=== PATIENT | female | born 1990 | race Caucasian/White ===

== ENCOUNTER 2020-09-20 04:49 | Inpatient (IN) | payer BC ==
[2020-09-20] MEDS ORDERED: Tranexamic Acid 1,000 MG in Sodium Chloride 0.9% 100 ML IV PRN (04:57)
[2020-09-20] MEDS ORDERED: Lidocaine 1% 50 ML MDV INJECT PRN (04:57)
[2020-09-20] MEDS ORDERED: Misoprostol 200 MCG Tab PO PRN (04:57)
[2020-09-20] MEDS ORDERED: Butorphanol 1 MG/ML SDV IVPUSH PRN (04:57)
[2020-09-20] MEDS ORDERED: Terbutaline 1 MG/ML SDV SUBCUT PRN (04:57)
[2020-09-20] MEDS ORDERED: Carboprost Tromethamine 250 MCG/1 ML Amp IM PRN (04:57)
[2020-09-20] MEDS ORDERED: Sodium Chloride 0.9% 10 ML SDV IV PRN ×2 (04:57→19:42)
[2020-09-20] MEDS ORDERED: Water For Irrigation,Sterile 1,000 ML Container IRR PRN (04:57)
[2020-09-20] MEDS ORDERED: Sodium Chloride 0.9% 10 ML Syringe FLUSH PRN ×2 (04:57→19:42)
[2020-09-20] MEDS ORDERED: Sodium Chloride 0.9% 2.5 ML Syringe FLUSH PRN ×2 (04:57→19:42)
[2020-09-20] MEDS ORDERED: Methylergonovine 0.2 MG/1 ML Amp IM PRN (04:57)
[2020-09-20] MEDS ORDERED: Ondansetron 4 MG/2 ML SDV IVPUSH PRN ×2 (04:57→20:53)
[2020-09-20] MEDS ORDERED: Oxytocin/0.9 % Sodium Chloride 30 UNIT/500 ML BAG IV SCH ×3 (05:00→19:45)
[2020-09-20] MEDS: Lactated Ringers 1,000 ML IV SCH ×2 (06:31→11:00)
[2020-09-20] MEDS ORDERED: Ropivacaine 0.2% PF 2 MG/ML 20 ML SDV ONE (10:37)
[2020-09-20] MEDS ORDERED: fentaNYL 100 MCG/2 ML SDV ONE ×2 (10:37→19:48)
[2020-09-20] MEDS ORDERED: Ropivacaine HCl/PF 100 ML ONE (10:37)
--- NOTE | 2020-09-20 11:41 | PCM.PREANE ---
Preanesthetic Assessment - Procedure Proposed Procedure: MARY ANNE - Anesthesia/Transfusion/Family Hx Anesthesia History: Prior Anesthesia Without Reaction Family History of Anesthesia Reaction: No Transfusion History: No Prior Transfusion(s) Intubation History: Unknown - Review of Systems General: No Symptoms Pulmonary: No Symptoms Cardiovascular: No Symptoms Gastrointestinal: No Symptoms Neurological: No Symptoms Other: Reports: None, Anxiety - Physical Assessment NPO Status Date: 09/20/20 NPO Status Time: 11:00 Height: 1.52 m Weight: 73.936 kg ASA Class: 2 Mental Status: Alert & Oriented x3 Airway Class: Mallampati = 2 Dentition: Reports: Normal Dentition ROM/Head Extension: Full Lungs: Clear to Auscultation Cardiovascular: Regular Rate - Lab Values: Laboratory Last Values WBC 10.00 K/uL (4.0-11.0) 09/20/20 05:15 RBC 4.96 M/uL (4.30-5.90) 09/20/20 05:15 Hgb 14.0 g/dL (12.0-16.0) 09/20/20 05:15 Hct 42.2 % (36.0-46.0) 09/20/20 05:15 MCV 85.1 fL (80.0-98.0) 09/20/20 05:15 MCH 28.2 pg (27.0-32.0) 09/20/20 05:15 MCHC 33.2 g/dL (31.0-37.0) 09/20/20 05:15 RDW Std Deviation 45.3 fl (28.0-62.0) 09/20/20 05:15 RDW Coeff of Ha 15 % (11.0-15.0) 09/20/20 05:15 Plt Count 270 K/uL (150-400) 09/20/20 05:15 MPV 10.90 fL (7.40-12.00) 09/20/20 05:15 Nucleated RBC % 0.0 /100WBC 09/20/20 05:15 Nucleated RBCs # 0 K/uL 09/20/20 05:15 Blood Type A POSITIVE 09/20/20 05:15 Antibody Screen NEGATIVE 09/20/20 05:15 - Allergies Allergies/Adverse Reactions: Allergies Allergy/AdvReac Type Severity Reaction Status Date / Time No Known Allergies Allergy Verified 09/19/20 11:34 - Blood Blood Available: No Product(s) Available: None - Anesthesia Plan Pre-Op Medication Ordered: None - Acknowledgements Anesthesia Type Planned: Epidural Pt an Appropriate Candidate for the Planned Anesthesia: No Alternatives and Risks of Anesthesia Discussed w Pt/Guardian: No Pt/Guardian Understands and Agrees with Anesthesia Plan: No Additional Comments: . 2/10 pain. On pitocin. Discussed. ? answered. Permit signed. Wishes to proceed. 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: - SUBSTANCE USE Tobacco Use Status *Q: Never Tobacco User Second Hand Smoke Exposure: No Recreational Drug Use History: No - CURRENT (IN HOUSE) MEDS Current Meds: Current Medications Butorphanol Tartrate (Stadol) 1 mg IVPUSH Q1H PRN PRN Reason: Pain Carboprost Tromethamine (Hemabate Ds) 250 mcg IM ASDIRECTED PRN PRN Reason: Post Hemorrhage Oxytocin/Sodium Chloride (Oxytocin 30 Unit/500 Ml-Ns) 30 unit in 500 mls @ 999 mls/hr IV TITRATE JAMES Tranexamic Acid 1,000 mg/ (Sodium Chloride) 110 mls @ 660 mls/hr IV ONETIME PRN PRN Reason: Bleeding Oxytocin/Sodium Chloride (Oxytocin 30 Unit/500 Ml-Ns) 30 unit in 500 mls @ 2 mls/hr IV TITRATE JAMES; Protocol Last Titration: 09/20/20 11:35 Dose: 10 munits/min, 10 mls/hr Documented by: Lactated Ringer's (Ringers, Lactated) 1,000 mls @ 150 mls/hr IV ASDIRECTED AJMES Last Admin: 09/20/20 11:00 Dose: 150 mls/hr Documented by: Lidocaine HCl (Xylocaine 1%) 50 ml INJECT ONETIME PRN PRN Reason: Laceration repair Methylergonovine Maleate (Methergine) 0.2 mg IM ASDIRECTED PRN PRN Reason: Post Hemorrhage Misoprostol (Cytotec) 200 mcg PO ONETIME PRN PRN Reason: Post Hemorrhage Ondansetron HCl (Zofran) 4 mg IVPUSH Q4H PRN PRN Reason: Nausea/Vomiting Sodium Chloride (Saline Flush) 10 ml FLUSH ASDIRECTED PRN PRN Reason: Keep Vein Open Sodium Chloride (Saline Flush) 2.5 ml FLUSH ASDIRECTED PRN PRN Reason: Keep Vein Open Sodium Chloride (Normal Saline) 10 ml IV ASDIRECTED PRN PRN Reason: IV Use Sterile Water (Sterile Water For Irrigation) 1,000 ml IRR ASDIRECTED PRN PRN Reason: delivery Terbutaline Sulfate (Brethine) 0.25 mg SUBCUT ASDIRECTED PRN PRN Reason: Tacysystole Discontinued Medications Fentanyl (Sublimaze) Confirm Administered Dose 100 mcg .ROUTE .STK-MED ONE Stop: 09/20/20 10:38 Ropivacaine (Naropin 0.2%) Confirm Administered Dose 100 mls @ as directed .ROUTE .[employer]-MED ONE Stop: 09/20/20 10:38 Ropivacaine (Naropin 0.2%) Confirm Administered Dose 20 ml .ROUTE .STK-MED ONE Stop: 09/20/20 10:38
[2020-09-20] MEDS ORDERED: ceFAZolin 1 GM in Premix Bag 1 BAG IV ONE (19:42)
[2020-09-20] MEDS ORDERED: Citric Acid/Sodium Citrate Solution 30 ML Cup PO ONE (19:42)
[2020-09-20] MEDS ORDERED: Lactated Ringers 1,000 ML IV SCH ×2 (19:45→21:00)
[2020-09-20] MEDS ORDERED: Lidocaine 2% 5 ML SDV ONE (19:49)
[2020-09-20] MEDS ORDERED: ceFAZolin 1 GM Vial ONE (19:56)
[2020-09-20] MEDS ORDERED: Sodium Chloride 0.9% 40 ML ONE (19:56)
[2020-09-20] MEDS ORDERED: Acetaminophen/oxyCODONE 325-5 MG Tab PO PRN ×2 (19:58→20:53)
[2020-09-20] MEDS ORDERED: fentaNYL 100 MCG/2 ML SDV IVPUSH PRN (19:58)
[2020-09-20] MEDS ORDERED: Nalbuphine 10 MG/1 ML Vial IVPUSH PRN (19:59)
[2020-09-20] MEDS ORDERED: Morphine PF 10 MG/10 ML SDV ONE (20:10)
[2020-09-20] MEDS ORDERED: diphenhydrAMINE 50 MG/ML SDV IVPUSH PRN (20:53)
[2020-09-20] MEDS ORDERED: Lanolin 100% Cream 7 GM Tube TOP PRN (20:53)
[2020-09-20] MEDS ORDERED: Oxytocin 10 Units/1 ML SDV IM PRN (20:53)
[2020-09-20] MEDS ORDERED: Bisacodyl 10 MG Supp RECTAL PRN (20:53)
--- NOTE | 2020-09-20 21:05 | PCM.OPNOTE ---
- General Post-Op/Procedure Note Date of Surgery/Procedure: 09/20/20 Operative Procedure(s): Primary LTCS Findings: Viable male APGARs 9, 9 weight 8 lb 13 oz. Delivery intact placenta with 3V cord. Pre Op Diagnosis: 40/2 week IUP. LGA fetus. Arrest of descent Post-Op Diagnosis: 40/2 week IUP. LGA fetus. Arrest of descent Anesthesia Technique: Epidural Primary Surgeon: Haley Singh Fluid Replacement, Intraop: 1,200 EBL in mLs: 500 Complications: none known Condition: Stable Free Text/Narrative:: Dictation [id number]
--- NOTE | 2020-09-20 21:20 | PCM.SN.2 ---
- Free Text/Narrative Note: Unable to deliver. called. Discussed, ? answered, will proceed with epidural anesthesia.
--- NOTE | 2020-09-20 21:22 | PCM.POSTAN ---
POST ANESTHESIA ASSESSMENT - MENTAL STATUS Mental Status: Alert - RESPIRATORY Respiratory Status: Respiratory Rate WNL - CARDIOVASCULAR CV Status: Pulse Rate WNL - GASTROINTESTINAL GI Status: No Symptoms - PAIN Pain Score: 0 (Block regressing slowly.) - POST OP HYDRATION Hydration Status: Adequate & Stable - OBSERVATIONS Free Text/Narrative:: Doing well, VSS, catheter out with tip intact. No problems noted at present.
[2020-09-20] MEDS: Docusate Sodium 100 MG Cap PO SCH (22:45)
[2020-09-20] MEDS: Ketorolac 30 MG/ML SDV IVPUSH SCH (22:45)
--- NOTE | 2020-09-20 23:15 | OR ---
SURGEON: Haley Singh M.D. DATE OF PROCEDURE: 09/20/2020 PREOPERATIVE DIAGNOSES: 1. 40 and 2 week intrauterine . 2. Large for gestational age fetus. 3. Arrest of descent. POSTOPERATIVE DIAGNOSES: 1. 40 and 2 week intrauterine . 2. Large for gestational age fetus. 3. Arrest of descent. PROCEDURE: Primary low-transverse section. PRIMARY SURGEON: Haley Singh M.D. ANESTHESIA: Epidural. ESTIMATED BLOOD LOSS: 500 mL. FLUIDS: 1200 mL of crystalloid. COMPLICATIONS: None known. FINDINGS: Viable male. scores 9 at one minute and 9 at five minutes. Weight of 8 pounds 13 ounces. Delivery of intact placenta 3-vessel cord. DISPOSITION: to nursery. Mom in PACU. INDICATIONS: Francesca is a 30-year-old G1, P0, at 40 and 2 weeks' gestational age, who was admitted on the morning of 09/20/2020 for scheduled induction of labor due to past tube . Fetus is LGA with an estimated weight approximately 4000 g. The patient was admitted, routine labs drawn, and IV hydration was initiated. She is COVID negative. heart tone is category 1. Pitocin was at 12 milliunits per minute shortly before 10:00 a.m. and at that time she was found to be 2 cm, 80% effaced, -2 station; therefore, amniotomy was performed. A large amount of clear fluid was returned. The patient became increasingly uncomfortable thereafter and underwent regional anesthesia in the form of epidural. Shortly after epidural, she was found to be 4 to 5 cm, 80% effaced, and at a -1 station. The patient continued to progress nicely through the early afternoon hours, and shortly after 5:00 p.m. was found to be complete 100% effaced at zero station, began pushing efforts. Pushed readily for a little over 2 hours with minimal change in the cervical station and just caput forming. The heart tones remained category 1. Fluid remained clear. The patient was comfortable with her epidural. After discussion, the patient realized that this was a large fetus, and she prefers to discontinue pushing efforts, and proceed with delivery. Risks of delivery have been discussed with her including risks of infection; bleeding; possible trauma to surrounding bowel, bladder, and ureters; in case of excessive blood loss, need for blood product transfusion; in rare lifesaving circumstances, the need for hysterectomy; risk for thromboembolic event; and risk of anesthesia have also been discussed. Proper consent obtained. DESCRIPTION OF PROCEDURE: The patient was taken to the operating room. She underwent a bolus of her epidural. She was placed in the dorsal supine position with a leftward tilt. She was put in a frog-leg position, so vaginal hand could be utilized during delivery. She was prepped and draped in the usual sterile fashion. Henry to gravity. SCDs to the lower extremity. Received 1 g of Ancef prophylactically. Time-out was performed. Anesthesia was tested and found to be adequate. A Pfannenstiel skin incision was now created and carried down to the level of the rectus fascia, which was incised in the midline, lateralized on either side sharply and bluntly. The superior aspect of fascia was tented upward, dissected sharply and bluntly away from underlying muscles. In a similar aspect, this was performed with the inferior aspect of fascia. Rectus muscles were now in midline. Peritoneum was tented upward and entered sharply with Metzenbaum scissors. Peritoneal muscle was now lateralized bluntly. Uterine position and position palpated. A self-retaining retractor was now gently placed. Uterovesical reflection was visualized. Bladder flap was created sharply and bluntly. Bladder was mobilized away from lower uterine segment. A low-transverse hysterotomy was now performed. A large amount of clear fluid was returned. Hysterotomy was now lateralized bluntly. A hand was placed and the head was delivered from the pelvis with the help with the vaginal hand from attending nursing staff. Head was flexed, delivered from the pelvis. Fundal pressure was applied. The head was delivered followed by anterior shoulder, posterior shoulder, and remainder of the body without difficulty. The 's oropharynx and nares were bulb suctioned. Infant was crying vigorously. After a delay, cord was clamped x2 and cut. The infant was handed off to attending skin fitter, nursery staff. Cord arterial, cord venous, and cord blood sampling were obtained. The placenta was now delivered spontaneously intact. The uterine cavity was cleared of all clot and debris, well irrigated and suction dried. Hysterotomy was repaired using 0 Vicryl in a continuous running locked fashion followed by a re- imbricating layer. Any areas of oozing were cauterized. Posterior aspect of the uterus was inspected. No defects or hematomas found to be forming. Regions were well irrigated and suction dried. Colonic gutters cleared of all clot and debris, well irrigated and suction dried. Hysterotomy was once again inspected and found to be hemostatic. Once again, any areas of serosal oozing were cauterized. A self-retaining retractor was now gently removed. Uterus remained firm. Bladder blade was placed. The hysterotomy was again inspected and found to be hemostatic. Rectus muscles and peritoneum were now reapproximated in inverted mattress suture technique. Anterior aspect of the muscle and posterior aspect of the fascia were closely inspected. Any areas of oozing were cauterized. The rectus fascia was now reapproximated using 0 Vicryl in continuous running fashion beginning laterally on either side and meeting in the midline. Subcutaneous tissues were now well irrigated, suction dried. Any areas of oozing were cauterized. Skin edges were reapproximated using 3-0 Vicryl on a Connor needle in a subcuticular fashion followed by half-inch Steri-Strips and Mastisol for imbrication. The uterus remained firm. Sponge, instrument, and needle counts were correct x2. The patient tolerated the procedure well overall. She will go to the PACU in stable condition. Infant to nursery. MAYELIN DOUGLAS /[id number]
[2020-09-21] MEDS: Simethicone 80 MG Tab.Chew PO SCH ×4 (00:17→17:58)
[2020-09-21] MEDS: Ketorolac 30 MG/ML SDV IVPUSH SCH ×3 (05:00→17:57)
--- NOTE | 2020-09-21 07:22 | PCM48HPAN ---
Post Anesthesia Note - EVALUATION WITHIN 48HRS OF ANESTHETIC Vital Signs in Normal Range: Yes Patient Participated in Evaluation: Yes Respiratory Function Stable: Yes Airway Patent: Yes Cardiovascular Function Stable: Yes Hydration Status Stable: Yes Pain Control Satisfactory: Yes (Minimal soreness.) Nausea and Vomiting Control Satisfactory: Yes Mental Status Recovered: Yes Vital Signs: Last Vital Signs Temp 36.2 C 09/21/20 05:00 Pulse 80 09/21/20 05:00 Resp 16 09/21/20 05:00 BP 103/69 09/21/20 05:00 Pulse Ox 98 09/21/20 05:00 - COMMENTS/OBSERVATIONS Free Text/Narrative:: Doing well. No problems noted at present.
--- NOTE | 2020-09-21 08:14 | PCM.PNPP ---
- General Info Date of Service: 09/21/20 Functional Status: Reports: Pain Controlled, Tolerating Diet - Review of Systems General: Reports: Fatigue. Denies: Fever, Weakness Pulmonary: Denies: Shortness of Breath Cardiovascular: Denies: Chest Pain, Palpitations, Lightheadedness Gastrointestinal: Denies: No Symptoms Genitourinary: Reports: No Symptoms Musculoskeletal: Reports: No Symptoms Skin: Reports: No Symptoms Neurological: Reports: No Symptoms Psychiatric: Reports: No Symptoms - General Info Date of Service: 09/21/20 - Patient Data Vital Signs - Most Recent: Last Vital Signs Temp 36.0 C L 09/21/20 07:35 Pulse 77 09/21/20 07:35 Resp 16 09/21/20 07:35 BP 100/67 09/21/20 07:35 Pulse Ox 95 09/21/20 07:35 Weight - Most Recent: 73.936 kg I&O - Last 24 Hours: Intake & Output 09/20/20 09/21/20 09/21/20 22:59 06:59 14:59 Intake Total 2200 1100 Output Total 250 500 Balance 1950 600 Lab Results - Last 24 Hours: Laboratory Results - last 24 hr 09/20/20 09/21/20 Range/Units 20:19 04:48 Hgb 11.3 L (12.0-16.0) g/dL Hct 35.4 L (36.0-46.0) % Cord ABG pH 7.347 (7.18-7.38) Cord ABG Base Excess -1 H (-10--2) Cord VBG pH 7.373 (7.25-7.45) Cord VBG Base Excess -2 (-10--2) Med Orders - Current: Current Medications Bisacodyl (Dulcolax) 10 mg RECTAL ONETIME PRN PRN Reason: Constipation Carboprost Tromethamine (Hemabate Ds) 250 mcg IM ASDIRECTED PRN PRN Reason: Post Hemorrhage Diphenhydramine HCl (Benadryl) 25 mg IVPUSH Q6H PRN PRN Reason: Itching or Nausea Docusate Sodium (Colace) 100 mg PO BID JAMES Last Admin: 09/20/20 22:45 Dose: 100 mg Documented by: Emollient Ointment (Lansinoh Hpa) 0 gm TOP ASDIRECTED PRN PRN Reason: Sore Nipples Last Admin: 09/21/20 00:56 Dose: 1 applic Documented by: Fentanyl (Sublimaze) 50 mcg IVPUSH Q5M PRN PRN Reason: Pain (severe 7-10) Stop: 09/21/20 19:58 Oxytocin/Sodium Chloride (Oxytocin 30 Unit/500 Ml-Ns) 30 unit in 500 mls @ 999 mls/hr IV TITRATE [facility] Tranexamic Acid 1,000 mg/ (Sodium Chloride) 110 mls @ 660 mls/hr IV ONETIME PRN PRN Reason: Bleeding Oxytocin/Sodium Chloride (Oxytocin 30 Unit/500 Ml-Ns) 30 unit in 500 mls @ 2 mls/hr IV TITRATE [facility]; Protocol Last Titration: 09/20/20 19:25 Dose: 0 munits/min, 0 mls/hr Documented by: Oxytocin/Sodium Chloride (Oxytocin 30 Unit/500 Ml-Ns) 30 unit in 500 mls @ 250 mls/hr IV TITRATE [facility] Lactated Ringer's (Ringers, Lactated) 1,000 mls @ 125 mls/hr IV ASDIRECTED [facility] Last Admin: 09/21/20 01:04 Dose: 125 mls/hr Documented by: Ibuprofen (Motrin) 800 mg PO Q8H PRN PRN Reason: mild pain or fever Ketorolac Tromethamine (Toradol) 30 mg IVPUSH Q6H [facility] Stop: 09/21/20 21:01 Last Admin: 09/21/20 05:00 Dose: 30 mg Documented by: Nalbuphine HCl (Nubain) 2.5 mg IVPUSH Q3H PRN PRN Reason: Pruritis Stop: 09/21/20 19:59 Ondansetron HCl (Zofran) 4 mg IVPUSH Q4H PRN PRN Reason: Nausea/Vomiting Oxycodone/Acetaminophen (Percocet 325-5 Mg) 1 tab PO Q4H PRN PRN Reason: Pain (moderate 4-6) Oxycodone/Acetaminophen (Percocet 325-5 Mg) 2 tab PO Q4H PRN PRN Reason: Pain (moderate 4-6) Oxytocin (Pitocin) 10 unit IM ASDIRECTED PRN PRN Reason: Excessive Vaginal Bleeding Simethicone (Simethicone) 160 mg PO QID [facility] Last Admin: 09/21/20 06:33 Dose: 160 mg Documented by: Sodium Chloride (Saline Flush) 10 ml FLUSH ASDIRECTED PRN PRN Reason: Keep Vein Open Sodium Chloride (Saline Flush) 2.5 ml FLUSH ASDIRECTED PRN PRN Reason: Keep Vein Open Sodium Chloride (Normal Saline) 10 ml IV ASDIRECTED PRN PRN Reason: IV Use Sterile Water (Sterile Water For Irrigation) 1,000 ml IRR ASDIRECTED PRN PRN Reason: delivery Terbutaline Sulfate (Brethine) 0.25 mg SUBCUT ASDIRECTED PRN PRN Reason: Tacysystole Discontinued Medications Butorphanol Tartrate (Stadol) 1 mg IVPUSH Q1H PRN PRN Reason: Pain Cefazolin Sodium (Ancef) Confirm Administered Dose 1 gm .ROUTE .STK-MED ONE Stop: 09/20/20 19:57 Citric Acid/Sodium Citrate (Bicitra Solution) 30 ml PO ONETIME ONE Stop: 09/20/20 19:43 Last Admin: 09/20/20 19:50 Dose: Not Given Documented by: Fentanyl (Sublimaze) Confirm Administered Dose 100 mcg .ROUTE .STK-MED ONE Stop: 09/20/20 10:38 Fentanyl (Sublimaze) Confirm Administered Dose 100 mcg .ROUTE .STK-MED ONE Stop: 09/20/20 19:49 Lactated Ringer's (Ringers, Lactated) 1,000 mls @ 150 mls/hr IV ASDIRECTED [facility] Last Infusion: 09/20/20 19:32 Dose: Infused Documented by: Ropivacaine (Naropin 0.2%) Confirm Administered Dose 100 mls @ as directed .ROUTE .STK-MED ONE Stop: 09/20/20 10:38 Lactated Ringer's (Ringers, Lactated) 1,000 mls @ 500 mls/hr IV BOLUS [facility] Last Admin: 09/20/20 19:45 Dose: 500 mls/hr Documented by: Cefazolin Sodium/Dextrose 1 gm (/ Premix) 50 mls @ 100 mls/hr IV ONETIME ONE Stop: 09/20/20 20:11 Acetaminophen (Ofirmev 1000 Mg/100 Ml) Confirm Administered Dose 100 mls @ as directed .ROUTE .STK-MED ONE Stop: 09/20/20 19:49 Sodium Chloride (Normal Saline) Confirm Administered Dose 40 mls @ as directed .ROUTE .STK-MED ONE Stop: 09/20/20 19:57 Lidocaine (Xylocaine-Mpf 2%) Confirm Administered Dose 15 ml .ROUTE .STK-MED ONE Stop: 09/20/20 19:50 Lidocaine HCl (Xylocaine 1%) 50 ml INJECT ONETIME PRN PRN Reason: Laceration repair Methylergonovine Maleate (Methergine) 0.2 mg IM ASDIRECTED PRN PRN Reason: Post Hemorrhage Misoprostol (Cytotec) 200 mcg PO ONETIME PRN PRN Reason: Post Hemorrhage Morphine Sulfate (Duramorph Pf) Confirm Administered Dose 10 mg .ROUTE .STK-MED ONE Stop: 09/20/20 20:11 Ondansetron HCl (Zofran) 4 mg IVPUSH Q4H PRN PRN Reason: Nausea/Vomiting Oxycodone/Acetaminophen (Percocet 325-5 Mg) 1 tab PO ONETIME PRN PRN Reason: Pain (moderate 4-6) Ropivacaine (Naropin 0.2%) Confirm Administered Dose 20 ml .ROUTE .[employer]-MED ONE Stop: 09/20/20 10:38 Sodium Chloride (Saline Flush) 10 ml FLUSH ASDIRECTED PRN PRN Reason: Keep Vein Open Sodium Chloride (Saline Flush) 2.5 ml FLUSH ASDIRECTED PRN PRN Reason: Keep Vein Open Sodium Chloride (Normal Saline) 10 ml IV ASDIRECTED PRN PRN Reason: IV Use - Interaction Support Person: - Recovery Exam Fundal Tone: Firm Fundal Level: 1 Fingerbreadths Below Umbilicus Fundal Placement: Midline Lochia Amount: Small Lochia Color: Rubra/Red Perineum Description: Edematous Episiotomy/Laceration: None Bladder Status: Indwelling Catheter in Place Urinary Elimination: Indwelling Catheter - Exam General: Alert, Oriented Lungs: Normal Respiratory Effort Cardiovascular: Regular Rate, Regular Rhythm GI/Abdominal Exam: Normal Bowel Sounds, Soft. No: Guarding, Rigid Extremities: Pedal Edema (trace) Skin: Warm, Dry, Intact Wound/Incisions: Dressing Dry and Intact Neurological: No New Focal Deficit Psy/Mental Status: Alert, Normal Affect, Normal Mood - Problem List & Annotations (1) Status post primary low transverse section SNOMED Code(s): 117410075, 60452958, [id number], [id number], [id number] Code(s): Z98.891 - HISTORY OF UTERINE SCAR FROM PREVIOUS SURGERY Status: Acute Current Visit: Yes - Problem List Review Problem List Initiated/Reviewed/Updated: Yes - My Orders Last 24 Hours: My Active Orders 09/20/20 Dinner Regular Diet [DIET] 09/20/20 19:42 Patient Status [ADT] Routine Up ad Yusra [RC] ASDIRECTED Verify Patient Consent Obtain [RC] ASDIRECTED Vital Signs [RC] PER UNIT ROUTINE Peripheral IV Insertion Adult [OM.PC] Routine Schedule Procedure [COMM] Per Unit Routine 09/20/20 19:43 Notify Provider Vital Signs [RC] PRN 09/20/20 19:45 Oxytocin/0.9 % Sodium Chloride [Oxytocin 30 Unit/500 ML-NS] 30 unit in 500 ml IV TITRATE 09/20/20 20:53 Patient Status [ADT] Routine Ambulate [RC] PER UNIT ROUTINE Antiembolic Devices [RC] PER UNIT ROUTINE Communication Order [RC] PER UNIT ROUTINE Communication Order [RC] PER UNIT ROUTINE Communication Order [RC] Per Unit Routine Cooling Warming Measures [RC] ASDIRECTED May Shower [RC] ASDIRECTED Notify Provider Intake and Out [RC] ASDIRECTED Notify Provider Vital Signs [RC] ASDIRECTED RT Incentive Spirometry [RC] Q2HWA Vital Signs [RC] PER UNIT ROUTINE Acetaminophen/oxyCODONE [Percocet 325-5 MG] 1 tab PO Q4H PRN Acetaminophen/oxyCODONE [Percocet 325-5 MG] 2 tab PO Q4H PRN Lanolin [Lansinoh HPA] See Dose Instructions TOP ASDIRECTED PRN Ondansetron [Zofran] 4 mg IVPUSH Q4H PRN Oxytocin [Pitocin] 10 unit IM ASDIRECTED PRN bisacodyL [Dulcolax] 10 mg RECTAL ONETIME PRN diphenhydrAMINE [Benadryl] 25 mg IVPUSH Q6H PRN Abdominal Binder [OM.PC] Routine Assess Lochia [WOMSER] Per Unit Routine Assess Uterine Involution [WOMSER] Per Unit Routine Breast Pump [WOMSER] Per Unit Routine Heat Therapy [OM.PC] Routine Ice Therapy [OM.PC] Routine Peripheral IV Discontinue [OM.PC] Routine Sequential Compression Device [OM.PC] Per Unit Routine 09/20/20 21:00 Docusate Sodium [Colace] 100 mg PO BID Ketorolac [Toradol] 30 mg IVPUSH Q6H Lactated Ringers [Ringers, Lactated] 1,000 ml IV ASDIRECTED 09/21/20 00:00 Simethicone 160 mg PO QID 09/22/20 03:00 Ibuprofen [Motrin] 800 mg PO Q8H PRN - Assessment Assessment:: POD 1 status post primary LTCS/arrest of descent - Plan Plan:: Doing well overall-- VS are stable and labs reassuring. Continue postoerative cares.
[2020-09-21] MEDS: Docusate Sodium 100 MG Cap PO SCH ×2 (10:53→21:27)
[2020-09-21] MEDS ORDERED: Simethicone 80 MG Tab.Chew ONE (18:04)
[2020-09-22] MEDS: Simethicone 80 MG Tab.Chew PO SCH ×2 (00:10→05:52)
[2020-09-22] MEDS ORDERED: Ibuprofen 800 MG Tab PO PRN (03:00)
[2020-09-22] MEDS: Acetaminophen/oxyCODONE 325-5 MG Tab PO PRN ×3 (05:52→14:31)
--- NOTE | 2020-09-22 08:40 | PCM.PNPP ---
- General Info Date of Service: 09/22/20 Functional Status: Reports: Pain Controlled, Tolerating Diet, Ambulating, Urinating - Review of Systems General: Reports: Fatigue. Denies: Fever, Weakness Pulmonary: Denies: Shortness of Breath Cardiovascular: Denies: Chest Pain, Palpitations, Lightheadedness Gastrointestinal: Denies: Abdominal Pain, Nausea, Vomiting Genitourinary: Denies: Flank Pain Musculoskeletal: Reports: No Symptoms Skin: Reports: No Symptoms Neurological: Reports: No Symptoms Psychiatric: Reports: No Symptoms - General Info Date of Service: 09/22/20 - Patient Data Vital Signs - Most Recent: Last Vital Signs Temp 35.7 C L 09/22/20 04:54 Pulse 82 09/22/20 04:54 Resp 16 09/22/20 04:54 BP 121/72 09/22/20 04:54 Pulse Ox 95 09/22/20 04:54 Weight - Most Recent: 73.936 kg I&O - Last 24 Hours: Intake & Output 09/21/20 09/22/20 09/22/20 22:59 06:59 14:59 Output Total 300 Balance -300 Med Orders - Current: Current Medications Bisacodyl (Dulcolax) 10 mg RECTAL ONETIME PRN PRN Reason: Constipation Carboprost Tromethamine (Hemabate Ds) 250 mcg IM ASDIRECTED PRN PRN Reason: Post Hemorrhage Diphenhydramine HCl (Benadryl) 25 mg IVPUSH Q6H PRN PRN Reason: Itching or Nausea Docusate Sodium (Colace) 100 mg PO BID [facility] Last Admin: 09/21/20 21:27 Dose: 100 mg Documented by: Emollient Ointment (Lansinoh Hpa) 0 gm TOP ASDIRECTED PRN PRN Reason: Sore Nipples Last Admin: 09/21/20 00:56 Dose: 1 applic Documented by: Oxytocin/Sodium Chloride (Oxytocin 30 Unit/500 Ml-Ns) 30 unit in 500 mls @ 999 mls/hr IV TITRATE [facility] Tranexamic Acid 1,000 mg/ (Sodium Chloride) 110 mls @ 660 mls/hr IV ONETIME PRN PRN Reason: Bleeding Oxytocin/Sodium Chloride (Oxytocin 30 Unit/500 Ml-Ns) 30 unit in 500 mls @ 2 mls/hr IV TITRATE [facility]; Protocol Last Titration: 09/20/20 19:25 Dose: 0 munits/min, 0 mls/hr Documented by: Oxytocin/Sodium Chloride (Oxytocin 30 Unit/500 Ml-Ns) 30 unit in 500 mls @ 250 mls/hr IV TITRATE [facility] Lactated Ringer's (Ringers, Lactated) 1,000 mls @ 125 mls/hr IV ASDIRECTED [facility] Last Admin: 09/21/20 01:04 Dose: 125 mls/hr Documented by: Ibuprofen (Motrin) 800 mg PO Q8H PRN PRN Reason: mild pain or fever Ondansetron HCl (Zofran) 4 mg IVPUSH Q4H PRN PRN Reason: Nausea/Vomiting Oxycodone/Acetaminophen (Percocet 325-5 Mg) 1 tab PO Q4H PRN PRN Reason: Pain (moderate 4-6) Last Admin: 09/22/20 05:52 Dose: 1 tab Documented by: Oxycodone/Acetaminophen (Percocet 325-5 Mg) 2 tab PO Q4H PRN PRN Reason: Pain (moderate 4-6) Oxytocin (Pitocin) 10 unit IM ASDIRECTED PRN PRN Reason: Excessive Vaginal Bleeding Simethicone (Simethicone) 160 mg PO QID [facility] Last Admin: 09/22/20 05:52 Dose: 160 mg Documented by: Sodium Chloride (Saline Flush) 10 ml FLUSH ASDIRECTED PRN PRN Reason: Keep Vein Open Sodium Chloride (Saline Flush) 2.5 ml FLUSH ASDIRECTED PRN PRN Reason: Keep Vein Open Sodium Chloride (Normal Saline) 10 ml IV ASDIRECTED PRN PRN Reason: IV Use Sterile Water (Sterile Water For Irrigation) 1,000 ml IRR ASDIRECTED PRN PRN Reason: delivery Terbutaline Sulfate (Brethine) 0.25 mg SUBCUT ASDIRECTED PRN PRN Reason: Tacysystole Discontinued Medications Butorphanol Tartrate (Stadol) 1 mg IVPUSH Q1H PRN PRN Reason: Pain Cefazolin Sodium (Ancef) Confirm Administered Dose 1 gm .ROUTE .STK-MED ONE Stop: 09/20/20 19:57 Citric Acid/Sodium Citrate (Bicitra Solution) 30 ml PO ONETIME ONE Stop: 09/20/20 19:43 Last Admin: 09/20/20 19:50 Dose: Not Given Documented by: Fentanyl (Sublimaze) Confirm Administered Dose 100 mcg .ROUTE .STK-MED ONE Stop: 09/20/20 10:38 Fentanyl (Sublimaze) Confirm Administered Dose 100 mcg .ROUTE .STK-MED ONE Stop: 09/20/20 19:49 Fentanyl (Sublimaze) 50 mcg IVPUSH Q5M PRN PRN Reason: Pain (severe 7-10) Stop: 09/21/20 19:58 Lactated Ringer's (Ringers, Lactated) 1,000 mls @ 150 mls/hr IV ASDIRECTED [facility] Last Infusion: 09/20/20 19:32 Dose: Infused Documented by: Ropivacaine (Naropin 0.2%) Confirm Administered Dose 100 mls @ as directed .ROUTE .ST-MED ONE Stop: 09/20/20 10:38 Lactated Ringer's (Ringers, Lactated) 1,000 mls @ 500 mls/hr IV BOLUS [facility] Last Admin: 09/20/20 19:45 Dose: 500 mls/hr Documented by: Cefazolin Sodium/Dextrose 1 gm (/ Premix) 50 mls @ 100 mls/hr IV ONETIME ONE Stop: 09/20/20 20:11 Acetaminophen (Ofirmev 1000 Mg/100 Ml) Confirm Administered Dose 100 mls @ as directed .ROUTE .STK-MED ONE Stop: 09/20/20 19:49 Sodium Chloride (Normal Saline) Confirm Administered Dose 40 mls @ as directed .ROUTE .STK-MED ONE Stop: 09/20/20 19:57 Ketorolac Tromethamine (Toradol) 30 mg IVPUSH Q6H [facility] Stop: 09/21/20 21:01 Last Admin: 09/21/20 17:57 Dose: 30 mg Documented by: Lidocaine (Xylocaine-Mpf 2%) Confirm Administered Dose 15 ml .ROUTE .STK-MED ONE Stop: 09/20/20 19:50 Lidocaine HCl (Xylocaine 1%) 50 ml INJECT ONETIME PRN PRN Reason: Laceration repair Methylergonovine Maleate (Methergine) 0.2 mg IM ASDIRECTED PRN PRN Reason: Post Hemorrhage Misoprostol (Cytotec) 200 mcg PO ONETIME PRN PRN Reason: Post Hemorrhage Morphine Sulfate (Duramorph Pf) Confirm Administered Dose 10 mg .ROUTE .STK-MED ONE Stop: 09/20/20 20:11 Nalbuphine HCl (Nubain) 2.5 mg IVPUSH Q3H PRN PRN Reason: Pruritis Stop: 09/21/20 19:59 Ondansetron HCl (Zofran) 4 mg IVPUSH Q4H PRN PRN Reason: Nausea/Vomiting Oxycodone/Acetaminophen (Percocet 325-5 Mg) 1 tab PO ONETIME PRN PRN Reason: Pain (moderate 4-6) Ropivacaine (Naropin 0.2%) Confirm Administered Dose 20 ml .ROUTE .STK-MED ONE Stop: 09/20/20 10:38 Simethicone (Simethicone) Confirm Administered Dose 80 mg .ROUTE .STK-MED ONE Stop: 09/21/20 18:05 Sodium Chloride (Saline Flush) 10 ml FLUSH ASDIRECTED PRN PRN Reason: Keep Vein Open Sodium Chloride (Saline Flush) 2.5 ml FLUSH ASDIRECTED PRN PRN Reason: Keep Vein Open Sodium Chloride (Normal Saline) 10 ml IV ASDIRECTED PRN PRN Reason: IV Use - Interaction Support Person: - Recovery Exam Fundal Tone: Firm Fundal Level: 1 Fingerbreadths Below Umbilicus Fundal Placement: Midline Lochia Amount: Small Lochia Color: Rubra/Red Perineum Description: Intact, Minimal Bruising/Swelling Episiotomy/Laceration: Approximated Bladder Status: Voiding Urinary Elimination: Indwelling Catheter - Exam General: Alert, Oriented Lungs: Normal Respiratory Effort Cardiovascular: Regular Rate, Regular Rhythm GI/Abdominal Exam: Normal Bowel Sounds, Soft Extremities: Pedal Edema (trace). No: Ivone's Sign Skin: Warm, Dry, Intact Wound/Incisions: Healing Well, No Drainage. No: Erythema Neurological: No New Focal Deficit Psy/Mental Status: Alert, Normal Affect, Normal Mood - Problem List & Annotations (1) Status post primary low transverse section SNOMED Code(s): 108705709, 29453024, 088399165, [id number], 921992568 Code(s): Z98.891 - HISTORY OF UTERINE SCAR FROM PREVIOUS SURGERY Status: Acute Current Visit: Yes - Problem List Review Problem List Initiated/Reviewed/Updated: Yes - My Orders Last 24 Hours: My Active Orders 09/22/20 03:00 Ibuprofen [Motrin] 800 mg PO Q8H PRN 09/22/20 08:37 Ready for Discharge [RC] PER UNIT ROUTINE - Assessment Assessment:: POD 2 status post primary LTCS/arrest of descent - Plan Plan:: VS remain stable. Doing well overall. Would like to go home later today. Ambulate halls and shower this morning. Follow up at [facility] 2 and 4 weeks. Discharge instructions reviewed. Discharge to home today.
[2020-09-22] MEDS: Docusate Sodium 100 MG Cap PO SCH (10:14)
== END 2020-09-22 15:45 | disposition home or self-care (01) | DRG 540 ==
LOC: MW.OB 04:49 → OBSVTOIN 19:42 → MW.OB 09-21 01:20
PROVIDERS: ADMIT Obstetrics & Gynecology; ATTEND Obstetrics & Gynecology
PROC: 10D00Z1 Extraction of Products of Conception, Low, Open Approach (ICD-10-PCS; principal; 2020-09-20)
PROC: 10907ZC Drainage of Amniotic Fluid, Therapeutic from Products of Conception, Via Natural or Artificial Opening (ICD-10-PCS; 2020-09-20)
PROC: 3E033VJ Introduction of Other Hormone into Peripheral Vein, Percutaneous Approach (ICD-10-PCS; 2020-09-20)
DX: O48.0 Post-term pregnancy (principal); O62.2 Other uterine inertia; Z3A.40 40 weeks gestation of pregnancy; Z37.0 Single live birth; O36.63X0 Maternal care for excessive fetal growth, third trimester, not applicable or unspecified
CPT/HCPCS: 36415; 51702; 59020; 82803; 85014; 85018; 85027; 86592; 86850; 86900; 86901; A9270-GY; J0131; J0690; J1885; J2001; J2270; J2590; J2795; J3010; J7120

== ENCOUNTER 2022-12-27 06:36 | Day surgery (SDC) | payer BC, OTHER ==
[~2022-12-27 06:36] MED LIST: Acetaminophen 1,000 MG in Premix Bag 1 BAG IV SCH; Lactated Ringers 1,000 ML IV SCH; Pregabalin 75 MG Cap PO SCH; Scopolamine 1.5 MG Transdermal Patch TOP ONE; cefOXitin 2 GM in Sodium Chloride 0.9% 50 ML IV SCH
[2022-12-27] MEDS ORDERED: fentaNYL 50 MCG/ML SDV IVPUSH PRN (07:13)
[2022-12-27] MEDS ORDERED: Naloxone 0.4 MG/ML SDV IVPUSH PRN (07:13)
[2022-12-27] MEDS ORDERED: HYDROmorphone 1 MG/ML Syringe IVPUSH PRN (07:13)
[2022-12-27] MEDS ORDERED: droPERidol 5 MG/2 ML SDV IVPUSH PRN (07:13)
[2022-12-27] MEDS ORDERED: Ondansetron 4 MG/2 ML SDV IVPUSH PRN (07:13)
[2022-12-27] MEDS ORDERED: Albuterol 0.083% 2.5 MG/3 ML Neb Soln NEB PRN (07:13)
[2022-12-27] MEDS ORDERED: Metoclopramide 10 MG/2 ML SDV IVPUSH PRN (07:13)
[2022-12-27] MEDS ORDERED: Morphine 2 MG/ML SYRINGE IVPUSH PRN (07:13)
[2022-12-27] MEDS ORDERED: Propofol 200 MG/20 ML SDV ONE (07:19)
[2022-12-27] MEDS ORDERED: Midazolam 1 MG/ML 2 ML SDV ONE (07:19)
[2022-12-27] MEDS ORDERED: Sugammadex Sodium 200 MG/2 ML VIAL ONE (07:19)
[2022-12-27] MEDS ORDERED: cefOXitin 1 GM Vial ONE (07:19)
[2022-12-27] MEDS ORDERED: Lidocaine 2% 5 ML SDV ONE (07:19)
[2022-12-27] MEDS ORDERED: Rocuronium Bromide 50 MG/5 ML Syringe ONE (07:19)
[2022-12-27] MEDS ORDERED: Ondansetron 4 MG/2 ML SDV ONE (07:19)
[2022-12-27] MEDS ORDERED: Dexamethasone 4 MG/ML 5 ML MDV ONE (07:19)
[2022-12-27] MEDS ORDERED: fentaNYL 100 MCG/2 ML SDV ONE ×2 (07:19→08:13)
[2022-12-27] MEDS ORDERED: Water For Injection, Sterile 20 ML ONE (07:20)
[2022-12-27] MEDS ORDERED: Bupivacaine 0.25% 30 ML SDV ONE (07:21)
[2022-12-27] MEDS ORDERED: Bupivacaine 25%/EPINEPHrine/PF 30 ML ONE (07:30)
[2022-12-27] MEDS ORDERED: Ropivacaine 0.5% 5 MG/ML 30 ML SDV ONE (07:30)
[2022-12-27] MEDS ORDERED: Phenylephrine HCl 0.5 MG/5 ML AMP ONE (07:56)
[2022-12-27] MEDS ORDERED: Indocyanine Green 25 MG SDV ONE (08:01)
[2022-12-27] MEDS ORDERED: Ketorolac 30 MG/ML SDV ONE (08:44)
== END 2022-12-27 10:44 | disposition home or self-care (01) ==
LOC: MW.SDS 06:36
PROVIDERS: ATTEND Surgery
DX: K80.10 Calculus of gallbladder with chronic cholecystitis without obstruction (principal); K82.8 Other specified diseases of gallbladder; J45.909 Unspecified asthma, uncomplicated; Z98.890 Other specified postprocedural states
CPT/HCPCS: 47562; 81025; A9270; J0694; J1100; J1885; J2250; J2370; J2405; J2704; J2795; J3010; J3490; J7030; J7120

== ENCOUNTER 2024-11-11 01:28 | Inpatient (IN) | payer BC ==
[2024-11-11] MEDS ORDERED: Citric Acid/Sodium Citrate Solution 30 ML Cup PO ONE (01:40)
[2024-11-11] MEDS ORDERED: Sodium Chloride 0.9% 2.5 ML Syringe FLUSH PRN ×2 (01:40→04:03)
[2024-11-11] MEDS ORDERED: Sodium Chloride 0.9% 10 ML Syringe FLUSH PRN ×2 (01:40→04:03)
[2024-11-11] MEDS ORDERED: Azithromycin 500 MG in Sodium Chloride 0.9% 250 ML IV ONE (01:40)
[2024-11-11] MEDS ORDERED: ceFAZolin 2 GM in Sodium Chloride 0.9% 50 ML IV ONE (01:40)
[2024-11-11] MEDS ORDERED: Sodium Chloride 0.9% 20 ML SDV IV PRN (01:40)
[2024-11-11] MEDS ORDERED: Oxytocin/0.9 % Sodium Chloride 30 UNIT/500 ML BAG IV SCH ×2 (01:45→04:15)
[2024-11-11] MEDS ORDERED: Ropivacaine 0.5% 5 MG/ML 30 ML SDV ONE (01:51)
[2024-11-11] MEDS ORDERED: Oxytocin 10 Units/1 ML SDV ONE (01:51)
[2024-11-11] MEDS ORDERED: Ketorolac 30 MG/ML SDV ONE (01:51)
[2024-11-11] MEDS ORDERED: EPINEPHrine 1 MG/1 ML Amp ONE (01:51)
[2024-11-11] MEDS ORDERED: ceFAZolin 1 GM Vial ONE (01:51)
[2024-11-11] MEDS ORDERED: Bupivacaine 0.25% 30 ML SDV ONE (01:51)
[2024-11-11] MEDS ORDERED: fentaNYL 100 MCG/2 ML SDV ONE (01:51)
[2024-11-11] MEDS ORDERED: Ondansetron 4 MG/2 ML SDV ONE (01:51)
[2024-11-11] MEDS ORDERED: Morphine PF 10 MG/10 ML SDV ONE (01:51)
[2024-11-11] MEDS ORDERED: Phenylephrine HCl In 0.9% NaCl 1 MG/10 ML Syringe ONE ×3 (01:56→02:43)
[2024-11-11] MEDS ORDERED: Azithromycin 500 MG Vial ONE (01:59)
[2024-11-11 02:04] LABS: HEMATOCRIT 35.5 % (37.0-47.0); HEMOGLOBIN 12.4 g/dL (12.0-16.0); MEAN CORPUSCULAR HEMOGLOBIN 28.6 pg (28.0-32.0); MEAN CORPUSCULAR HGB CONC 34.9 g/dL (32.0-36.0); MEAN PLATELET VOLUME 9.7 fL (9.4-12.3); PLATELET COUNT,PLT 295 K/uL (150-400); RED BLOOD CELL COUNT 4.33 M/uL (4.10-5.30); WHITE BLOOD CELL COUNT,WBC 8.85 K/uL (3.9-11.3)
[2024-11-11] MEDS: Lactated Ringers 1,000 ML IV SCH (02:19)
[2024-11-11] MEDS ORDERED: Tranexamic Acid 1,000 MG/10 ML Vial ONE (02:58)
[2024-11-11] MEDS ORDERED: Phenylephrine HCl In 0.9% NaCl 1 MG/10 ML Syringe IVPUSH PRN (04:03)
[2024-11-11] MEDS ORDERED: Metoclopramide 10 MG/2 ML SDV IVPUSH PRN (04:03)
[2024-11-11] MEDS ORDERED: ePHEDrine 50 MG/ML SDV IM PRN (04:03)
[2024-11-11] MEDS ORDERED: Naloxone 0.4 MG/ML SDV IVPUSH PRN (04:03)
[2024-11-11] MEDS ORDERED: Misoprostol 200 MCG Tab RECTAL PRN (04:03)
[2024-11-11] MEDS ORDERED: Morphine 2 MG/ML SYRINGE IVPUSH PRN (04:03)
[2024-11-11] MEDS ORDERED: Ondansetron 4 MG/2 ML SDV IVPUSH PRN ×2 (04:03)
[2024-11-11] MEDS ORDERED: Methylergonovine 0.2 MG/1 ML Amp IM ONE (04:03)
[2024-11-11] MEDS ORDERED: Measles, Mumps & Rubella Vaccine 0.5 ML SDV SUBCUT ONE (04:03)
[2024-11-11] MEDS ORDERED: oxyCODONE 5 MG Tab PO PRN (04:03)
[2024-11-11] MEDS ORDERED: HYDROmorphone 1 MG/ML Syringe IVPUSH PRN (04:03)
[2024-11-11] MEDS ORDERED: Nalbuphine 10 MG/1 ML Vial IVPUSH PRN (04:03)
[2024-11-11] MEDS ORDERED: Naloxone 0.4 MG/ML SDV IVPUSH ONE (04:03)
[2024-11-11] MEDS ORDERED: fentaNYL 50 MCG/ML SDV IVPUSH PRN (04:03)
[2024-11-11] MEDS ORDERED: Albuterol 0.083% 2.5 MG/3 ML Neb Soln NEB PRN (04:03)
[2024-11-11] MEDS ORDERED: diphenhydrAMINE 50 MG/ML SDV IVPUSH PRN (04:03)
[2024-11-11] MEDS ORDERED: Lanolin 100% Cream 7 GM Tube TOP PRN (04:03)
[2024-11-11] MEDS ORDERED: Acetaminophen/oxyCODONE 325-5 MG Tab PO PRN (04:03)
[2024-11-11] MEDS ORDERED: fentaNYL 100 MCG/2 ML SDV IVPUSH PRN (04:03)
[2024-11-11] MEDS ORDERED: Carboprost Tromethamine 250 MCG/1 mL Vial IM PRN (04:03)
[2024-11-11] MEDS ORDERED: Acetaminophen 500 MG Tab PO SCH (04:15)
[2024-11-11 04:16] LABS: PH,UMBILICAL ARTERIAL 7.25 (7.18-7.38); PH,UMBILICAL VENOUS 7.33 (7.25-7.45)
[2024-11-11] MEDS ORDERED: Ketorolac 30 MG/ML SDV IVPUSH SCH ×2 (04:30→08:00)
[2024-11-11] MEDS: Acetaminophen 1,000 MG in Premix Bag 1 BAG IV SCH (04:34)
[2024-11-11 06:02] LABS: BASOPHILS ABSOLUTE AUTO 0.02 K/uL (0.00-0.20); BASOPHILS PERCENT AUTO 0.1 % (0.0-1.0); HEMATOCRIT 35.8 % (37.0-47.0); IMMATURE GRAN ABSOLUTE AUTO 0.06 K/uL (0.00-0.05); IMMATURE GRAN PERCENT AUTO 0.4 % (0.0-0.4); LYMPHOCYTES ABSOLUTE AUTO 0.83 K/uL (1.00-4.80); MEAN CORPUSCULAR HEMOGLOBIN 28.2 pg (28.0-32.0); MEAN CORPUSCULAR HGB CONC 33.5 g/dL (32.0-36.0); MEAN PLATELET VOLUME 9.8 fL (9.4-12.3); MONOCYTES ABSOLUTE AUTO 0.35 K/uL (0.00-0.80); MONOCYTES PERCENT AUTO 2.1 % (0.0-8.0); NEUTROPHILS ABSOLUTE AUTO 15.18 K/uL (1.80-7.70); NEUTROPHILS PERCENT AUTO 92.4 % (41.0-71.0); PLATELET COUNT,PLT 277 K/uL (150-400); RED BLOOD CELL COUNT 4.26 M/uL (4.10-5.30); WHITE BLOOD CELL COUNT,WBC 16.44 K/uL (3.9-11.3)
[2024-11-11] MEDS: Ondansetron 4 MG/2 ML SDV IVPUSH PRN (09:22)
[2024-11-11] MEDS: Ketorolac 30 MG/ML SDV IVPUSH SCH (09:27)
[2024-11-11] MEDS ORDERED: Ibuprofen 800 MG Tab PO SCH (14:00)
[2024-11-11] MEDS: Docusate Sodium 100 MG Cap PO SCH (19:15)
[2024-11-11 22:23] LABS: GROUP B STREP BY PCR NEGATIVE (NEGATIVE)
[2024-11-12] MEDS: Ibuprofen 800 MG Tab PO SCH (03:00)
[2024-11-12] MEDS: Acetaminophen 500 MG Tab PO SCH (04:33)
[2024-11-12] MEDS: oxyCODONE 5 MG Tab PO PRN (13:26)
== END 2024-11-12 13:35 | disposition home or self-care (01) | DRG 540 ==
LOC: MW.OBCHECK 01:28 → MW.OB 01:29 → MW.OBCHECK 01:40 → OBSVTOIN 01:43 → MW.OB 06:13
PROVIDERS: ADMIT Obstetrics & Gynecology; ATTEND Obstetrics & Gynecology
PROC: 3E0234Z Introduction of Serum, Toxoid and Vaccine into Muscle, Percutaneous Approach (ICD-10-PCS; 2024-11-11)
PROC: 10D00Z1 Extraction of Products of Conception, Low, Open Approach (ICD-10-PCS; principal; 2024-11-11 02:03)
DX: O42.013 Preterm premature rupture of membranes, onset of labor within 24 hours of rupture, third trimester (principal); O34.211 Maternal care for low transverse scar from previous cesarean delivery; Z3A.34 34 weeks gestation of pregnancy; Z37.0 Single live birth; Z90.49 Acquired absence of other specified parts of digestive tract; Z23 Encounter for immunization; O60.14X0 Preterm labor third trimester with preterm delivery third trimester, not applicable or unspecified
CPT/HCPCS: 36415; 59025; 82803; 85025; 85027; 86592; 86850; 86900; 86901; 87653; A9270-GY; J0131; J0456; J0665; J0690; J1100; J1885; J2274; J2371; J2405; J2590; J2795; J3010; J7120